=== PATIENT | female | born 2000 | race African-American/Black ===

== ENCOUNTER 2021-12-01 02:08 | Emergency (ER) | payer SELFPAY ==
[2021-12-01] MEDS ORDERED: Sodium Chloride 0.9% 1,000 ML ONE (02:59)
[2021-12-01] MEDS ORDERED: Ondansetron PF 4 MG/2 ML Vial ONE (02:59)
[2021-12-01] MEDS ORDERED: Acetaminophen 500 MG TAB ONE (09:12)
== END 2021-12-01 09:10 | disposition home or self-care (01) ==
LOC: MADERS 02:08
DX: F10.929 Alcohol use, unspecified with intoxication, unspecified (principal); F32.A Depression, unspecified
CPT/HCPCS: 96361; 96374; J2405; J7050